=== PATIENT | male | born 1950 ===

== ENCOUNTER → 2019-02-02 14:28 | Outpatient (CLI) | payer MEDICARE, BC ==
[2019-02-02 17:51] LABS: HEMATOCRIT 40.4 % (42.0-54.0); HEMOGLOBIN 13.7 g/dL (13.5-17.5); MCH 34.6 pg (26.0-34.0); MCHC 33.9 g/dL (31.0-37.0); MEAN PLATELET VOLUME 9.6 fL (7.4-10.4); PLATELET COUNT 179 10x3/uL (130-400); RBC 3.96 10x6/uL (4.20-6.10); RDW 13.7 % (11.5-14.5); WBC 6.3 10x3/uL (4.8-10.8)
[2019-02-02 19:54] LABS: EOSINOPHILS 3 % (0-7); LYMPHOCYTES 28 % (15-50); MONOCYTES 11 % (2-11); NEUTROPHILS 57 % (40-80); PLATELET ESTIMATE NORMAL
[2019-02-04 07:32] LABS: RAPID PLASMA REAGIN Non Reactive (Non Reactive)
== END | disposition home or self-care (01) ==
LOC: D.LABREF 14:28
PROVIDERS: ATTEND Student in an Organized Health Care Education/Training Program
DX: D72.821 Monocytosis (symptomatic) (principal); Z11.4 Encounter for screening for human immunodeficiency virus [HIV]